=== PATIENT | female | born 2000 ===

== ENCOUNTER 2018-07-15 23:24 | Emergency (ER) | payer SELFPAY ==
[~2018-07-15] VITALS: Ht 160 cm; Wt 61.4 kg
[2018-07-15 23:25] VITALS: BP 100/66
== END 2018-07-16 00:30 | disposition left against medical advice (07) ==
LOC: EMS 23:25
DX: T16.1XXA Foreign body in right ear, initial encounter (principal); X58.XXXA Exposure to other specified factors, initial encounter; Y93.89 Activity, other specified; Y92.89 Other specified places as the place of occurrence of the external cause; Y99.8 Other external cause status; Z53.21 Procedure and treatment not carried out due to patient leaving prior to being seen by health care provider

== ENCOUNTER 2019-11-04 23:08 | Emergency (ER) | payer SELFPAY ==
[~2019-11-04] VITALS: Ht 160 cm; Wt 59.1 kg
[2019-11-04 23:18] VITALS: BP 121/86
== END 2019-11-04 23:35 | disposition left against medical advice (07) ==
LOC: EMS 23:08
DX: J02.9 Acute pharyngitis, unspecified (principal); Z53.21 Procedure and treatment not carried out due to patient leaving prior to being seen by health care provider